=== PATIENT | female | born 1980 | race Caucasian/White ===

== ENCOUNTER 2016-10-25 17:30 | Inpatient (IN) | payer SELFPAY ==
[~2016-10-25] VITALS: Ht 167.6 cm; Wt 52.0 kg
[~2016-10-25 17:30] MED LIST: ADVIL200 MG PO; BUPRENORPHIN-N1 EACH SL; BUPROPION XL150 MG PO; XANAX0.25 MG PO
[2016-10-25 19:45] LABS: BASOPHIL COUNT 0.1 K/uL (0-0.1); EOSINOPHIL (%) 2.2 % (0-5); EOSINOPHIL COUNT 0.2 K/uL (0-0.3); HEMATOCRIT 37.6 % (36.0-46.0); IMMATURE GRANULOCYTE (%) 0.1 % (0.0-0.7); INSTRUMENT ABS NEUTROPHIL CT 4.2 K/uL; LYMPHOCYTE COUNT 3.2 K/uL (1.0-2.8); MCH 30.1 PG (29.0-34.0); MCHC 34.3 G/DL (30.0-36.0); MCV 87.9 FL (83-99); MEAN PLAT.VOLUME 10.4 uM^3 (9.5-12.4); MONOCYTE (%) 6.7 % (3-12); MONOCYTE COUNT 0.6 K/uL (0-0.8); NEUTROPHIL (%) 51.2 % (45-76); NEUTROPHIL COUNT 4.2 K/uL (1.8-6.4); PLATELET COUNT 229 K/uL (156-360); RBC DIS.WIDTH-CV 11.7 % (11.8-14.6); RBC DIS.WIDTH-SD 37.6 % (39-53); RED BLOOD COUNT 4.28 M/uL (3.80-5.20); WHITE BLOOD COUNT 8.2 K/uL (4.1-10.2)
[2016-10-25 20:00] LABS: CHLORIDE 99 mEq/L (99-109); POTASSIUM 3.5 mEq/L (3.7-5.4); SODIUM 135 mEq/L (136-147)
[2016-10-25 20:02] LABS: GLUCOSE 98 mg/dL (70-99)
[2016-10-25 20:04] LABS: ANION GAP 6 MEQ/L (2-14)
[2016-10-25 20:05] LABS: SERUM ETHYL ALCOHOL < 10 mg/dL
[2016-10-25 20:06] LABS: GFR ESTIMATE (CALCULATED) > 59 mL/min/
[2016-10-25 20:07] LABS: UREA NITROGEN (BUN) 11 mg/dL (9-23)
[2016-10-25 21:16] LABS: AMPHETAMINE NEGATIVE (500 ng/mL); BARBITURATES NEGATIVE (200 ng/mL); BENZODIAZEPINES NEGATIVE (150 ng/mL); COCAINE NEGATIVE (150 ng/mL); INTERNAL CONTROLS VALID? YES; METHADONE NEGATIVE (200 ng/mL); METHAMPHETAMINE NEGATIVE (500 ng/mL); OPIATES (MORPHINE) NEGATIVE (100 ng/mL); OXYCODONE PRESUMPTIVE POSITIVE (100 ng/mL); PHENCYCLIDINE NEGATIVE (25 ng/mL); PROPOXYPHENE NEGATIVE (300 ng/mL); THC CANNABINOIDS NEGATIVE (50 ng/mL); TRICYCLIC ANTIDEPRESSANTS NEGATIVE (300 ng/mL)
[2016-10-26 07:00] LABS: QUANTITATIVE HCG < 4.0 MIU/ML
[2016-10-26] MEDS ORDERED: [UNRECOGNIZED DRUG - REMARK] PO (13:23)
[2016-10-26] MEDS ORDERED: [UNRECOGNIZED DRUG - OTHER] PO (13:24)
[2016-10-26 14:52] VITALS: BP 119/79
[2016-10-26 15:16] VITALS: BP 119/79
[2016-10-27 07:45] VITALS: BP 114/73
[2016-10-27 15:20] VITALS: BP 119/69
[2016-10-28 07:32] VITALS: BP 88/56
[2016-10-28 10:49] VITALS: BP 118/76
[2016-10-28 15:33] VITALS: BP 116/69
[2016-10-29 08:16] VITALS: BP 127/62
[2016-10-29 15:36] VITALS: BP 106/68
[2016-10-29 20:55] LABS: C DIFF TOXIN NEGATIVE (NEGATIVE); PROBE CHECK PASS; SPECIMEN PROCESSING CONTROL PASS
[2016-10-30 07:29] VITALS: BP 107/57
[2016-10-30] MEDS ORDERED: TRAZODONE HCL50 MG PO (10:24)
[2016-10-30] MEDS ORDERED: BUPROPION XL300 MG PO (10:24)
== END 2016-10-30 12:09 | disposition home or self-care (01) | DRG 881 ==
LOC: EME 17:30 → EDOF 10-26 11:43 → 1WEST 10-26 11:43
PROVIDERS: Emergency Medicine; Psychiatry & Neurology Psychiatry
DX: F32.9 Major depressive disorder, single episode, unspecified (principal); F11.10 Opioid abuse, uncomplicated; F17.210 Nicotine dependence, cigarettes, uncomplicated; F41.9 Anxiety disorder, unspecified; R63.0 Anorexia; Z68.1 Body mass index [BMI] 19.9 or less, adult
CPT/HCPCS: 80048; 84702; 84703; 85025; 87493; 90839; 97150 GO; 97165 GO; 99281; 99285; G0480

== ENCOUNTER 2017-10-11 14:55 | Emergency (ER) | payer SELFPAY ==
[~2017-10-11] VITALS: Ht 167.6 cm; Wt 58.5 kg
[~2017-10-11 14:55] MED LIST changes: +BUPROPION XL300 MG PO; +TRAZODONE HCL50 MG PO; +[UNRECOGNIZED DRUG - OTHER] PO; +[UNRECOGNIZED DRUG - REMARK] PO
[2017-10-11 16:05] LABS: APPEARANCE SL.HAZY ((CLEAR)); BILIRUBIN NEGATIVE; BLOOD NEGATIVE; COLOR YELLOW ((YELLOW)); GLUCOSE (STRIP) NEGATIVE; KETONES 5; LEUKOCYTES SMALL; NITRITE NEGATIVE; PROTEIN (STRIP) 30; SPECIFIC GRAVITY 1.021 (1.000-1.030); UROBILINOGEN 0.2 MG/DL (0.2-1.0)
[2017-10-11 16:06] LABS: HEMATOCRIT 35.7 % (36.0-46.0); HEMOGLOBIN 12.4 G/DL (11.9-15.5); MCH 30.7 PG (29.0-34.0); MCHC 34.7 G/DL (30.0-36.0); MCV 88.4 FL (83-99); PLATELET COUNT 227 K/uL (156-360); RBC DIS.WIDTH-CV 11.9 % (11.8-14.6); RBC DIS.WIDTH-SD 38.2 % (39-53); RED BLOOD COUNT 4.04 M/uL (3.80-5.20); WHITE BLOOD COUNT 8.1 K/uL (4.1-10.2)
[2017-10-11 16:17] LABS: BACTERIA RARE /HPF; CALCIUM OXALATE CRYSTALS 4+ /HPF; EPITHELIAL CELLS 2+ /HPF; MUCUS 1+ /LPF; RED BLOOD CELLS 0-5 /HPF (0-5); WHITE BLOOD CELLS 0-5 /HPF (0-5)
[2017-10-11 16:27] LABS: ALBUMIN 3.8 g/dL (3.2-4.8)
[2017-10-11 16:28] LABS: CHLORIDE 104 mEq/L (99-109); POTASSIUM 4.5 mEq/L (3.7-5.4); SODIUM 138 mEq/L (136-147)
[2017-10-11 16:30] LABS: GLUCOSE 102 mg/dL (70-99); TOTAL PROTEIN 6.5 g/dL (6.4-8.3)
[2017-10-11 16:32] LABS: TOTAL BILIRUBIN 0.2 mg/dL (0.0-1.0)
[2017-10-11 16:33] LABS: ALKALINE PHOSPHATASE 49 IU/L (3-129)
[2017-10-11 16:34] LABS: CREATININE 0.8 mg/dL (0.6-1.3); GFR ESTIMATE (CALCULATED) > 59 mL/min/
[2017-10-11 16:35] LABS: AST (GOT) 12 IU/L (2-34); UREA NITROGEN (BUN) 7 mg/dL (9-23)
[2017-10-11 16:36] LABS: ALT (GPT) 9 IU/L (3-49)
[2017-10-11 16:42] LABS: QUANTITATIVE HCG 11201.2 MIU/ML
[2017-10-11] MEDS ORDERED: NORCO 5/3251 TABLET PO (19:13)
[2017-10-11 19:23] VITALS: BP 110/64
== END 2017-10-11 19:38 | disposition home or self-care (01) ==
LOC: EME 14:55
PROVIDERS: Physician Assistant
DX: O26.891 Other specified pregnancy related conditions, first trimester (principal); R10.31 Right lower quadrant pain; O99.341 Other mental disorders complicating pregnancy, first trimester; F32.9 Major depressive disorder, single episode, unspecified; F41.9 Anxiety disorder, unspecified; Z90.49 Acquired absence of other specified parts of digestive tract; Z87.442 Personal history of urinary calculi; Z88.8 Allergy status to other drugs, medicaments and biological substances; Z3A.01 Less than 8 weeks gestation of pregnancy
CPT/HCPCS: 76801; 80053; 81003; 84702; 85027; 99281; 99285; J1885; J7040